=== PATIENT | female | born 1995 | race Caucasian/White ===

== ENCOUNTER 2017-03-23 19:51 | Emergency (ER) | payer MEDICAID ==
[~2017-03-23] VITALS: Ht 170.2 cm; Wt 77.0 kg
[2017-03-23 20:08] VITALS: BP 130/80
== END 2017-03-23 23:10 | disposition left against medical advice (07) ==
LOC: ER 20:27
DX: R05 Cough (principal); R09.81 Nasal congestion; H92.03 Otalgia, bilateral; Z53.21 Procedure and treatment not carried out due to patient leaving prior to being seen by health care provider